=== PATIENT | female | born 1970 | race Caucasian/White ===

== ENCOUNTER → 2017-07-18 08:23 | Outpatient (CLI) | payer OTHER, BC, SELFPAY ==
[2015-02-01 20:18] VITALS: BP 164/89; BMI 37.1
--- NOTE | 2017-07-18 08:33 | EKG12_ITS ---
Test Reason : PRE OP Blood Pressure : / mmHG Vent. Rate : 084 BPM Atrial Rate : 159 BPM P-R Int : 000 ms QRS Dur : 084 ms QT Int : 378 ms P-R-T Axes : 013 057 024 degrees QTc Int : 446 ms Sinus rhythm with atrial tachycardia Abnormal ECG Confirmed by BOB ROJO, MARII ([id number]), newspaper editor FRITZ CAMACHO ([id number] on 07/20/2017 2:00:48 PM Referred By: Xavier Felix Confirmed By:MARII ROJAS MD
== END ==
PROVIDERS: Family Provider Family Medicine; PCP Family Medicine; Visit Provider Orthopaedic Surgery
DX: F17.210 Nicotine dependence, cigarettes, uncomplicated (principal)
CPT/HCPCS: 93005

== ENCOUNTER → 2020-07-06 13:57 | Outpatient (CLI) | payer OTHER, SELFPAY ==
[2019-09-15 14:41] VITALS: BMI 36.3
== END ==
PROVIDERS: PCP Family Medicine; Visit Provider Family Medicine
DX: R00.2 Palpitations (principal)
CPT/HCPCS: 93225; 93226

== ENCOUNTER → 2020-08-13 13:49 | Outpatient (CLI) | payer OTHER, SELFPAY ==
[2019-09-15 14:41] VITALS: BMI 36.3
--- NOTE | 2020-08-13 13:52 | ECHOD_ITS ---
Reason For Study: Palpitations Procedure This was a 2D Doppler, Color Flow transthoracic echocardiogram. Exam performed in department. Left Ventricle Normal LV size. Left ventricular systolic function is normal. The estimated ejection fraction is 70 %. No evidence for diastolic dysfunction. No regional wall motion abnormalities noted. Right Ventricle Normal RV size. Normal systolic function. Atria Normal left atrium. Normal right atrium. No doppler evidence for ASD. Mitral Valve There is no mitral annular calcification. Normal mitral valve. Trivial mitral valve insufficiency. Tricuspid Valve Normal tricuspid valve. Trivial tricuspid valve insufficiency. Unable to estimate RV systolic pressure due to insufficient tricuspid regurgitant envelope. Aortic Valve Trisinus/trileaflet aortic valve. Normal aortic valve. Pulmonic Valve The pulmonic valve is not well visualized. Great Vessels The aortic root is not well visualized. Pericardium/Pleural No pericardial effusion. MMode/2D Measurements & Calculations LVIDd: 4.5 cm IVSd: 1.0 cm LA dimension: 3.3 cm LVIDs: 2.6 cm LVPWd: 0.88 cm RVDd: 2.8 cm FS: 41.1 % LAV(MOD-bp): 42.6 ml LA A4 area: 16.7 cm2 RA A4 area: 12.0 cm2 LAV(MOD-bp) Indexed: 20.1 ml/m2 LAV(MOD-sp2): 43.0 ml LAV(MOD-sp4): 37.8 ml Time Measurements MV dec time: 0.27 sec Doppler Measurements & Calculations MV E max reuben: 107.6 cm/sec Lat Peak E' Reuben: 14.6 cm/sec Med Peak E' Reuben: 10.2 cm/sec MV A max reuben: 83.4 cm/sec E/E' lat: 7.4 E/E' med: 10.6 MV E/A: 1.3 MV V2 max: 100.8 cm/sec MV P1/2t max reuben: 100.8 cm/sec Ao V2 max: 166.3 cm/sec MV max P.1 mmHg MV P1/2t: 74.0 msec Ao max P.1 mmHg MV V2 mean: 52.3 cm/sec MV dec slope: 399.0 cm/sec2 MV mean P.3 mmHg MVA(P1/2t): 3.0 cm2 MV V2 VTI: 30.5 cm LV V1 max: 162.1 cm/sec PA V2 max: 108.8 cm/sec LV V1 max P.5 mmHg Interpretation Summary Left ventricular systolic function is normal. The estimated ejection fraction is 70 %. Trivial mitral valve insufficiency. Trivial tricuspid valve insufficiency. Unable to estimate RV systolic pressure due to insufficient tricuspid regurgitant envelope. No evidence for diastolic dysfunction. Ordering Physician: Leila Moreno Referring Physician: Leila Moreno Performed By: Mohsen Meyer RCS
== END ==
LOC: CVS 13:52
PROVIDERS: PCP Family Medicine; Referring Provider Nurse Practitioner Family; Visit Provider Nurse Practitioner Family
DX: R00.2 Palpitations (principal)
CPT/HCPCS: 93306

== ENCOUNTER 2020-09-03 15:14 | Outpatient (RCR) | payer OTHER, SELFPAY ==
[2019-09-15 14:41] VITALS: BMI 36.3
== END 2020-11-16 23:59 ==
LOC: IMMUN 15:14
PROVIDERS: PCP Family Medicine; Visit Provider Family Medicine
DX: Z23 Encounter for immunization (principal)
CPT/HCPCS: 0001A; 0002A; 91300